=== PATIENT | male | born 1945 | race American Indian/Alaskan Native ===

== ENCOUNTER 2016-05-09 08:27 | Inpatient (IN) | payer MEDICARE ==
[2016-05-09] MEDS ORDERED: NACL 0.9% 500 ML 500 ML IV ONE (09:26)
[2016-05-09] MEDS ORDERED: APRESOLINE IV ONE ×2 (09:26→11:49)
--- NOTE | 2016-05-09 09:27 | Emergency Department Report ---
ED General Adult HPI - General Chief complaint: Dizziness Stated complaint: DIZZINESS/FATIGUE Time Seen by Provider: 05/09/16 09:17 Source: patient, RN notes reviewed Mode of arrival: Ambulatory Limitations: No Limitations - History of Present Illness Initial comments: This is a 72-year-old male. He is previously unknown to me. Supposed to be seeing Dr. Perez, but is not following up. Has a past medical history of hypertension. Has not taken medications in over 3 months. The patient presents to the ER with dizziness. He reports having a mild headache last night, and woke up this morning feeling "off." This sensation has since resolved. Headache is not sudden or thunderclap in nature. There is no syncope, or presyncope. He shouldn't does not feel off balance per se, but feels "off." Symptoms have been constant since this morning, they have no exacerbating or relieving factors. -: Gradual Location: head Radiation: non-radiation Quality: aching Consistency: constant Improves with: none Worsens with: none Associated Symptoms: denies other symptoms - Related Data Previous Rx's Medication Instructions Recorded Last Taken Type hydrALAZINE [Apresoline TAB] 25 mg PO Q8HR #90 tab 09/30/15 Unknown Rx Allergies Allergy/AdvReac Type Severity Reaction Status Date / Time No Known Allergies Allergy Unverified 05/09/16 08:33 ED Review of Systems ROS: Stated complaint: DIZZINESS/FATIGUE Other details as noted in HPI Constitutional: see HPI Eyes: as per HPI ENT: as per HPI Respiratory: no symptoms reported Cardiovascular: as per HPI Gastrointestinal: as per HPI Genitourinary: as per HPI Musculoskeletal: as per HPI Skin: as per HPI Neurological: headache, abnormal gait Psychiatric: as per HPI ED Past Medical Hx - Past Medical History Hx Hypertension: Yes - Surgical History Past Surgical History?: No - Social History Smoking Status: Current Every Day Smoker Substance Use Type: None - Medications Home Medications: Home Medications Medication Instructions Recorded Confirmed Last Taken Type hydrALAZINE [Apresoline TAB] 25 mg PO Q8HR #90 tab 09/30/15 05/09/16 Unknown Rx ED Physical Exam - General Limitations: No Limitations General appearance: alert, in no apparent distress - Head Head exam: Present: atraumatic, normocephalic - Eye Eye exam: Present: normal appearance, EOMI. Absent: nystagmus - ENT ENT exam: Present: normal exam, normal orophraynx, mucous membranes moist, normal external ear exam - Neck Neck exam: Present: normal inspection, full ROM. Absent: tenderness, meningismus - Respiratory Respiratory exam: Present: normal lung sounds bilaterally. Absent: respiratory distress, wheezes, rales, rhonchi, stridor, decreased breath sounds - Cardiovascular Cardiovascular Exam: Present: regular rate, normal rhythm, normal heart sounds. Absent: bradycardia, tachycardia, irregular rhythm, systolic murmur, diastolic murmur, rubs, gallop - GI/Abdominal GI/Abdominal exam: Present: soft, normal bowel sounds. Absent: distended, tenderness, guarding, rebound, rigid, pulsatile mass - Rectal Rectal exam: Present: deferred - Extremities Exam Extremities exam: Present: normal inspection, full ROM, normal capillary refill. Absent: tenderness, pedal edema, joint swelling, calf tenderness - Back Exam Back exam: Present: normal inspection, full ROM. Absent: tenderness, CVA tenderness (R), CVA tenderness (L), muscle spasm, paraspinal tenderness, vertebral tenderness - Neurological Exam Neurological exam: Present: alert, oriented X3, abnormal gait (negative Romberg examination. Patient unable to perform tandem gait. Normal [id number] gait) , other (Extraocular movements intact. Tongue midline. No facial droop. Facial sensation intact to light touch in the V1, V2, V3 distribution bilaterally. 5 and 5 strength in 4 extremities.. Sensation is intact to light touch in 4 extremities.). Absent: motor sensory deficit (normal [id number]. Normal finger to nose. Negative pronator drift.) - Psychiatric Psychiatric exam: Present: normal affect, normal mood - Skin Skin exam: Present: warm, dry, intact, normal color. Absent: rash ED Course Vital Signs 05/09/16 05/09/16 05/09/16 08:30 08:49 09:00 Temperature 97.8 F Pulse Rate 91 H 96 H Respiratory 19 22 34 H Rate Blood Pressure 224/134 200/125 Blood Pressure [Right] O2 Sat by Pulse 99 98 Oximetry 05/09/16 05/09/16 05/09/16 09:20 10:05 11:30 Temperature 98.0 F Pulse Rate 89 85 Respiratory 16 13 Rate Blood Pressure 196/116 Blood Pressure 198/129 [Right] O2 Sat by Pulse 96 Oximetry 05/09/16 05/09/16 05/09/16 12:00 12:01 13:00 Temperature 98.7 F 98.5 F Pulse Rate 94 H 85 92 H Respiratory 12 13 Rate Blood Pressure 198/129 Blood Pressure 186/107 157/105 [Right] O2 Sat by Pulse 95 100 Oximetry 05/09/16 14:00 Temperature 97.9 F Pulse Rate 90 Respiratory 12 Rate Blood Pressure Blood Pressure 158/99 [Right] O2 Sat by Pulse 100 Oximetry - Reevaluation(s) Reevaluation #1: 05/09/16 12:21 Differential diagnosis: Transient ischemic attack, subacute posterior circulation stroke, unsteady gait, hypertensive emergency/emergency Assessment and plan: 71-year-old male with markedly elevated blood pressure, and sensation of feeling "off." Patient has inability to walk tandem gait which he states is new. Otherwise, his neurologic examination is unremarkable. Woke up with symptoms, therefore, not a TPA candidate. Given that patient has had poorly controlled blood pressure 4 months, and may be experiencing a subacute stroke, we will allow for some permissive hypertension, and gradually lowered blood pressure. Aspirin is ordered, and case was discussed with the Hospital physician, Dr. Quintero, who graciously accepted the patient to his service. ED Medical Decision Making - Lab Data Result diagrams: 05/09/16 09:03 05/09/16 09:03 Vital Signs 05/09/16 05/09/16 05/09/16 08:30 08:49 09:00 Temperature 97.8 F Pulse Rate 91 H 96 H Respiratory 19 22 34 H Rate Blood Pressure 224/134 200/125 Blood Pressure [Right] O2 Sat by Pulse 99 98 Oximetry 05/09/16 05/09/16 05/09/16 09:20 10:05 11:30 Temperature 98.0 F Pulse Rate 89 85 Respiratory 16 13 Rate Blood Pressure 196/116 Blood Pressure 198/129 [Right] O2 Sat by Pulse 96 Oximetry 05/09/16 12:01 Temperature Pulse Rate 85 Respiratory Rate Blood Pressure 198/129 Blood Pressure [Right] O2 Sat by Pulse Oximetry Lab Results 05/09/16 05/09/16 05/09/16 Range/Units 09:03 09:03 09:03 WBC 8.5 (4.5-11.0) K/mm3 RBC 6.42 H (3.65-5.03) M/mm3 Hgb 13.4 (11.8-15.2) gm/dl Hct 41.6 (35.5-45.6) % MCV 65 L (84-94) fl MCH 21 L (28-32) pg MCHC 32 (32-34) % RDW 15.5 H (13.2-15.2) % Plt Count 152 (140-440) K/mm3 Lymph % (Auto) 42.2 H (13.4-35.0) % [place] % (Auto) 9.2 H (0.0-7.3) % Eos % (Auto) 2.1 (0.0-4.3) % Baso % (Auto) 0.8 (0.0-1.8) % Lymph # 3.6 (1.2-5.4) K/mm3 [place] # 0.8 (0.0-0.8) K/mm3 Eos # 0.2 (0.0-0.4) K/mm3 Baso # 0.1 (0.0-0.1) K/mm3 Seg Neutrophils % 45.7 (40.0-70.0) % Seg Neutrophils # 3.9 (1.8-7.7) K/mm3 Sodium 140 (137-145) mmol/L Potassium 4.2 (3.6-5.0) mmol/L Chloride 103.7 (98-107) mmol/L Carbon Dioxide 23 (22-30) mmol/L Anion Gap 18 mmol/L BUN 12 (9-20) mg/dL Creatinine 1.2 (0.8-1.5) mg/dL Estimated GFR > 60 ml/min BUN/Creatinine Ratio 10.00 % Glucose 98 (75-100) mg/dL Calcium 9.1 (8.4-10.2) mg/dL Total Creatine Kinase (55-170) units/L Troponin T < 0.010 (0.00-0.029) ng/mL Urine Color (Yellow) Urine Turbidity (Clear) Urine pH (5.0-7.0) Ur Specific [place] (1.003-1.030) Urine Protein (Negative) mg/dL Urine Glucose (UA) (Negative) mg/dL Urine Ketones (Negative) mg/dL Urine Blood (Negative) Urine Nitrite (Negative) Urine Bilirubin (Negative) Urine Urobilinogen (<2.0) mg/dL Ur Leukocyte Esterase (Negative) Urine WBC (Auto) (0.0-6.0) /HPF Urine RBC (Auto) (0.0-6.0) /HPF Urine Mucus /HPF 05/09/16 05/09/16 Range/Units 09:03 10:11 WBC (4.5-11.0) K/mm3 RBC (3.65-5.03) M/mm3 Hgb (11.8-15.2) gm/dl Hct (35.5-45.6) % MCV (84-94) fl MCH (28-32) pg MCHC (32-34) % RDW (13.2-15.2) % Plt Count (140-440) K/mm3 Lymph % (Auto) (13.4-35.0) % [place] % (Auto) (0.0-7.3) % Eos % (Auto) (0.0-4.3) % Baso % (Auto) (0.0-1.8) % Lymph # (1.2-5.4) K/mm3 [place] # (0.0-0.8) K/mm3 Eos # (0.0-0.4) K/mm3 Baso # (0.0-0.1) K/mm3 Seg Neutrophils % (40.0-70.0) % Seg Neutrophils # (1.8-7.7) K/mm3 Sodium (137-145) mmol/L Potassium (3.6-5.0) mmol/L Chloride (98-107) mmol/L Carbon Dioxide (22-30) mmol/L Anion Gap mmol/L BUN (9-20) mg/dL Creatinine (0.8-1.5) mg/dL Estimated GFR ml/min BUN/Creatinine Ratio % Glucose (75-100) mg/dL Calcium (8.4-10.2) mg/dL Total Creatine Kinase 136 (55-170) units/L Troponin T (0.00-0.029) ng/mL Urine Color Straw (Yellow) Urine Turbidity Clear (Clear) Urine pH 7.0 (5.0-7.0) Ur Specific [place] 1.010 (1.003-1.030) Urine Protein <15 mg/dl (Negative) mg/dL Urine Glucose (UA) Neg (Negative) mg/dL Urine Ketones Neg (Negative) mg/dL Urine Blood Neg (Negative) Urine Nitrite Neg (Negative) Urine Bilirubin Neg (Negative) Urine Urobilinogen < 2.0 (<2.0) mg/dL Ur Leukocyte Esterase Neg (Negative) Urine WBC (Auto) 1.0 (0.0-6.0) /HPF Urine RBC (Auto) 1.0 (0.0-6.0) /HPF Urine Mucus Few /HPF - EKG Data -: EKG Interpreted by Me EKG shows normal: sinus rhythm Rate: normal - EKG Data 05/09/16 12:22 normal sinus, 80 beats per minute, normal axis, QTC 452 ms, Q waves noted in the inferior leads, not morphologically consistent with STEMI, unchanged from prior EKG September 2015. - Radiology Data Radiology results: report reviewed, image reviewed X-ray the chest negative for acute findings. Noncontrast CAT scan of the brain negative for acute findings, chronic changes are noted. Critical care attestation.: If time is entered above; I have spent that time in minutes in the direct care of this critically ill patient, excluding procedure time. ED Disposition Clinical Impression: Hypertensive urgency, Unsteady gait Disposition: OP ADMITTED IP TO THIS HOSP Is pt being admited?: Yes Condition: Good
[2016-05-09 09:29] LABS: Basophils % (Auto) 0.8 % (0.0-1.8); Eosinophils % (Auto) 2.1 % (0.0-4.3); Hematocrit 41.6 % (35.5-45.6); Hemoglobin 13.4 gm/dl (11.8-15.2); Mean Corpuscular HGB Conc 32 % (32-34); Platelet Count 152 K/mm3 (140-440); Red Blood Count 6.42 M/mm3 (3.65-5.03); Red Cell Distribution Width 15.5 % (13.2-15.2); White Blood Count 8.5 K/mm3 (4.5-11.0)
[2016-05-09 09:31] LABS: Mean Corpuscular Hemoglobin 21 pg (28-32); Mean Corpuscular Volume 65 fl (84-94)
[2016-05-09 09:38] LABS: Anion Gap 18 mmol/L; Blood Urea Nitrogen 12 mg/dL (9-20); Calcium 9.1 mg/dL (8.4-10.2); Carbon Dioxide 23 mmol/L (22-30); Chloride 103.7 mmol/L (98-107); Glucose 98 mg/dL (75-100); Potassium 4.2 mmol/L (3.6-5.0); Sodium 140 mmol/L (137-145)
--- NOTE | 2016-05-09 09:45 | XRay Report ---
ROUTINE CHEST, TWO VIEWS: HISTORY: Hypertension. The trachea, heart, mediastinal contour, lung hassan and bony thorax are unremarkable. The aorta is ectatic but well-defined. Low suspicion for dissection. IMPRESSION: No acute cardiopulmonary process.
--- NOTE | 2016-05-09 10:12 | Cat Scan Report ---
CT HEAD WITHOUT CONTRAST: HISTORY: Dizziness, hypertension. No comparison. Mild nonspecific chronic white matter changes are identified. A chronic cortical infarct measuring 2-3 cm is noted in the right posterior watershed region. There is no evidence for hemorrhage, mass or large area of acute ischemia. Ventricular size is within normal limits. The posterior fossa and contents are unremarkable. The left frontal sinus is opacified. The remaining visualized sinuses and mastoid air cells are well-aerated. IMPRESSION: Nonspecific chronic white matter changes. 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 Left frontal sinus disease, likely chronic.
--- NOTE | 2016-05-09 10:18 | Admit Criteria Form ---
Admission Criteria Documentation: HYPERTENSION Clinical Indications for Admission to Inpatient Care ( Place "X" for any and all applicable criteria): Admission is indicated for ANY ONE of the following(1)(2)(3)(4): [ ]I. Hypertensive emergency, with evidence of acute and progressing target organ disease as indicated by ANY ONE of the following: [ ]a) Hypertensive encephalopathy (eg, confusion, altered mental status) [ ]b) Cerebral infarction [ ]c) Intracranial hemorrhage [ ]d) Myocardial ischemia or infarction [ ]e) Pulmonary edema [ ]f) Aortic dissection [ ]g) Seizure [ ]h) Acute renal insufficiency [ ]i) Papilledema [ ]j) Microangiopathic hemolytic anemia [ ]II. Adrenergic crisis (eg, severe hypertension due to pheochromocytoma crisis, cocaine or amphetamine intoxication, or clonidine withdrawal) [X]III. Severe hypertension (SBP greater than 180 mmHg or DBP greater than 110 mmHg or greater than the 95th percentile for age, gender, and height in pediatric patients) that cannot be controlled (eg, to SBP less than 160 mmHg and DBP less than 100 mmHg in adults) by treatment with oral medication in emergency department or observation care Extended stay beyond goal length of stay may be needed for(11)(12)(13): [ ]a) Persistent hypertensive encephalopathy [ ]b) Continuation of pulmonary edema [ ]c) Recurring or persistent severe hypertension [ ]d) Target organ damage (eg, angina, stroke, aortic dissection) [ ]e) Associated renal insufficiency The original [employer] content created by [employer] has been revised. The portions of the content which have been revised are identified through the use of italic text or in bold, and [employer] has neither reviewed nor approved the modified material. All other unmodified content is copyright [employer]. Please see references footnoted in the original [employer] edition 2016 Admission Criteria Met: Yes
[2016-05-09 10:48] LABS: Bilirubin,Urine NEG (Negative); Blood,Urine NEG (Negative); Ketones,Urine NEG (Negative); Leukocyte Esterase,Urine NEG (Negative); Mucus,Urine FEW /HPF; Nitrite,Urine NEG (Negative); Protein,Urine <15 mg/dL mg/dL (Negative); Urobilinogen,Urine < 2.0 mg/dL (<2.0)
[2016-05-09] MEDS ORDERED: BABY ASPIRIN PO ONE (12:23)
--- NOTE | 2016-05-09 12:42 | History and Physical Report ---
History of Present Illness Chief complaint: My head hurts, and I just dont feel right History of present illness: 71 YO Male with HTN, Metabolic Syndrome, Medication Noncompliance, Nicotine Dependence presents to ED for evaluation. Pt states that he reports having a generalized headache that began 24 hours ago, and has worsened over the past 6 hours. Pt also states that he awoke this morning feeling "off." This sensation has since resolved. Pt denies fever, Chills, CP, Palpitations, NVD, Syncope, Vertigo, BRBPR, Prolonged travel/immobility. -: Gradual Location: head Radiation: non-radiation Quality: aching Consistency: constant Improves with: none Worsens with: none Associated Symptoms: denies other symptoms - Related Data Previous Rx's Medication Instructions Recorded Last Taken Type hydrALAZINE [Apresoline TAB] 25 mg PO Q8HR #90 tab 09/30/15 Unknown Rx Allergies Allergy/AdvReac Type Severity Reaction Status Date / Time No Known Allergies Allergy Unverified 05/09/16 08:33 ED Review of Systems ROS: Stated complaint: DIZZINESS/FATIGUE Other details as noted in HPI ED Past Medical Hx - Past Medical History Hx Hypertension: Yes - Surgical History Past Surgical History?: No - Social History Smoking Status: Current Every Day Smoker Substance Use Type: None - Medications Past History Past Medical History: hypertension Past Surgical History: No surgical history, Other (reviewed) Social history: single, smoking. denies: alcohol abuse, prescription drug abuse Family history: hypertension Medications and Allergies Allergies Allergy/AdvReac Type Severity Reaction Status Date / Time No Known Allergies Allergy Unverified 05/09/16 08:33 Home Medications Medication Instructions Recorded Confirmed Last Taken Type hydrALAZINE [Apresoline TAB] 25 mg PO Q8HR #90 tab 09/30/15 05/09/16 Unknown Rx Review of Systems All systems: negative Neurological: headaches, confusion Exam - Constitutional Vitals: Temp Pulse Resp BP Pulse Ox 98.0 F 85 13 198/129 96 05/09/16 11:30 05/09/16 12:01 05/09/16 11:30 05/09/16 12:01 05/09/16 11:30 General appearance: Present: mild distress - EENT Eyes: Present: PERRL ENT: hearing intact, clear oral mucosa - Neck Neck: Present: supple, normal ROM - Respiratory Respiratory effort: normal Respiratory: bilateral: CTA - Cardiovascular Heart Sounds: Present: S1 & S2. Absent: rub, click - Extremities Extremities: pulses symmetrical, No edema Peripheral Pulses: within normal limits - Abdominal General gastrointestinal: Present: soft, non-tender, non-distended, normal bowel sounds Male genitourinary: Present: normal - Integumentary Integumentary: Present: clear, warm, dry - Musculoskeletal Musculoskeletal: gait normal, strength equal bilaterally - Psychiatric Psychiatric: appropriate mood/affect, intact judgment & insight - Neurologic Neurologic: CNII-XII intact, moves all extremities Results - Labs CBC & Chem 7: 05/09/16 09:03 05/09/16 09:03 Labs: Abnormal lab results 05/09/16 Range/Units 09:03 RBC 6.42 H (3.65-5.03) M/mm3 MCV 65 L (84-94) fl MCH 21 L (28-32) pg RDW 15.5 H (13.2-15.2) % Lymph % (Auto) 42.2 H (13.4-35.0) % [place] % (Auto) 9.2 H (0.0-7.3) % Assessment and Plan - Patient Problems (1) Hypertensive urgency, malignant Current Visit: Yes Status: Acute Plan to address problem: Monitor BP q shift, supportive care, (2) Hypertensive encephalopathy syndrome Current Visit: Yes Status: Acute Plan to address problem: monitor bp q shift, supportive care, (3) Debility Current Visit: Yes Status: Acute Plan to address problem: bad alarm, fall precautions (4) Metabolic syndrome Current Visit: Yes Status: Acute Plan to address problem: lipid panel, supportive care, Pt counseled (5) DVT prophylaxis Current Visit: Yes Status: Acute
[2016-05-09] MEDS ORDERED: MILK OF MAGNESIA PO PRN (13:25)
[2016-05-09] MEDS ORDERED: TYLENOL PO PRN (13:25)
[2016-05-09] MEDS ORDERED: DULCOLAX PR PRN (13:25)
[2016-05-09] MEDS ORDERED: ZOFRAN IV PRN (13:25)
[2016-05-09] MEDS ORDERED: SODIUM CHLORIDE FLUSH SYRINGE 10 ML IV PRN (13:33)
[2016-05-09 14:15] LABS: Creatine Kinase 127 units/L (55-170); Creatine Kinase MB 1.6 ng/mL (0.0-4.0)
[2016-05-09] MEDS: APRESOLINE PO SCH ×2 (14:45→22:26)
[2016-05-09 15:48] LABS: Creatine Kinase MB 1.9 ng/mL (0.0-4.0)
[2016-05-09 15:53] LABS: Creatine Kinase 135 units/L (55-170)
[2016-05-09] MEDS: NORVASC PO SCH (17:05)
[2016-05-09 21:21] LABS: Creatine Kinase MB 2.8 ng/mL (0.0-4.0)
[2016-05-09 21:22] LABS: Creatine Kinase 213 units/L (55-170)
[2016-05-10] MEDS: APRESOLINE PO SCH ×3 (05:34→22:03)
[2016-05-10] MEDS: NORVASC PO SCH ×2 (10:39→15:09)
[2016-05-10] MEDS ORDERED: NORMODYNE IV PRN (13:50)
[2016-05-10] MEDS ORDERED: APRESOLINE IV PRN (13:50)
[2016-05-10] MEDS ORDERED: ZOFRAN IV PRN (13:50)
[2016-05-10] MEDS ORDERED: NORVASC PO SCH (13:53)
--- NOTE | 2016-05-10 13:58 | Progress Note ---
Assessment and Plan Assessment and plan: Accelerated hypertension: Increase Norvasc, add beta betsy Tobacco dependancy: counseling to quit History Interval history: Patient seen and examined. Follow up on elevated blood pressure which is still uncontrolled. Overnight uneventful. No cp, sob, n/v or severe headaches. Imaging, old records, testing, labs, nursing notes reviewed. Plan discussed with patient. Hospitalist Physical - Physical exam Narrative exam: GEN: WDWN, NAD, AWAKE, ALERT, ORIENTATED CVS: RRR, NORMAL S1S2 LUNGS/CHEST: CTA B, NORMAL CHEST EXPANSION B, GOOD AIR ENTRY B ABD: SOFT NTND, GBS, NO REBOUND OR GUARDING EXT/SKIN: NO SIGNIFICANT EDEMA OR RASH MSK: FROM X 4 EXTREMITIES NEURO: CN 2-12 GROSSLY INTACT, NO new FOCAL DEFICITS PSY: CALM - Constitutional Vitals: Temp Pulse Resp BP Pulse Ox 99.7 F H 111 H 20 180/122 20 L 05/10/16 09:35 05/10/16 10:39 05/10/16 06:00 05/10/16 10:39 05/10/16 09:35 Results - Labs CBC & Chem 7: 05/09/16 09:03 05/09/16 09:03 Labs: Laboratory Last Values WBC 8.5 K/mm3 (4.5-11.0) 05/09/16 09:03 RBC 6.42 M/mm3 (3.65-5.03) H 05/09/16 09:03 Hgb 13.4 gm/dl (11.8-15.2) 05/09/16 09:03 Hct 41.6 % (35.5-45.6) 05/09/16 09:03 MCV 65 fl (84-94) L 05/09/16 09:03 MCH 21 pg (28-32) L 05/09/16 09:03 MCHC 32 % (32-34) 05/09/16 09:03 RDW 15.5 % (13.2-15.2) H 05/09/16 09:03 Plt Count 152 K/mm3 (140-440) 05/09/16 09:03 Lymph % (Auto) 42.2 % (13.4-35.0) H 05/09/16 09:03 [place] % (Auto) 9.2 % (0.0-7.3) H 05/09/16 09:03 Eos % (Auto) 2.1 % (0.0-4.3) 05/09/16 09:03 Baso % (Auto) 0.8 % (0.0-1.8) 05/09/16 09:03 Lymph # 3.6 K/mm3 (1.2-5.4) 05/09/16 09:03 [place] # 0.8 K/mm3 (0.0-0.8) 05/09/16 09:03 Eos # 0.2 K/mm3 (0.0-0.4) 05/09/16 09:03 Baso # 0.1 K/mm3 (0.0-0.1) 05/09/16 09:03 Seg Neutrophils % 45.7 % (40.0-70.0) 05/09/16 09:03 Seg Neutrophils # 3.9 K/mm3 (1.8-7.7) 05/09/16 09:03 Sodium 140 mmol/L (137-145) 05/09/16 09:03 Potassium 4.2 mmol/L (3.6-5.0) 05/09/16 09:03 Chloride 103.7 mmol/L (98-107) 05/09/16 09:03 Carbon Dioxide 23 mmol/L (22-30) 05/09/16 09:03 Anion Gap 18 mmol/L 05/09/16 09:03 BUN 12 mg/dL (9-20) 05/09/16 09:03 Creatinine 1.2 mg/dL (0.8-1.5) 05/09/16 09:03 Estimated GFR > 60 ml/min 05/09/16 09:03 BUN/Creatinine Ratio 10.00 % 05/09/16 09:03 Glucose 98 mg/dL (75-100) 05/09/16 09:03 Calcium 9.1 mg/dL (8.4-10.2) 05/09/16 09:03 Total Creatine Kinase 213 units/L (55-170) H 05/09/16 20:33 CK-MB (CK-2) 2.8 ng/mL (0.0-4.0) 05/09/16 20:33 CK-MB (CK-2) Rel Index 1.3 (0-4) 05/09/16 20:33 Troponin T < 0.010 ng/mL (0.00-0.029) 05/09/16 20:33 NT-Pro-B Natriuret Pep 782.7 pg/mL (0-900) 05/09/16 13:37 Urine Color Straw (Yellow) 05/09/16 10:11 Urine Turbidity Clear (Clear) 05/09/16 10:11 Urine pH 7.0 (5.0-7.0) 05/09/16 10:11 Ur Specific [place] 1.010 (1.003-1.030) 05/09/16 10:11 Urine Protein <15 mg/dl mg/dL (Negative) 05/09/16 10:11 Urine Glucose (UA) Neg mg/dL (Negative) 05/09/16 10:11 Urine Ketones Neg mg/dL (Negative) 05/09/16 10:11 Urine Blood Neg (Negative) 05/09/16 10:11 Urine Nitrite Neg (Negative) 05/09/16 10:11 Urine Bilirubin Neg (Negative) 05/09/16 10:11 Urine Urobilinogen < 2.0 mg/dL (<2.0) 05/09/16 10:11 Ur Leukocyte Esterase Neg (Negative) 05/09/16 10:11 Urine WBC (Auto) 1.0 /HPF (0.0-6.0) 05/09/16 10:11 Urine RBC (Auto) 1.0 /HPF (0.0-6.0) 05/09/16 10:11 Urine Mucus Few /HPF 05/09/16 10:11
[2016-05-10] MEDS: LOPRESSOR PO SCH ×2 (15:12→22:02)
[2016-05-11] MEDS: APRESOLINE PO SCH (05:18)
[2016-05-11] MEDS: LOPRESSOR PO SCH (10:17)
[2016-05-11] MEDS: NORVASC PO SCH (10:18)
[2016-05-11 10:19] VITALS: BP 138/103
--- NOTE | 2016-05-11 11:11 | Discharge Summary ---
Providers - Providers Date of Admission: 05/09/16 13:25 Date of discharge: 05/11/16 Attending physician: MAAME VINSON Primary care physician: ABEL DUNN Hospitalization Condition: Stable Hospital course: Patient is 71-year-old man history of hypertension and tobacco dependency who admits to not taking his medication presents with headache. CT of the head showed chronic white matter changes and chronic cortical infarct right parietal temporal lobe and left frontal chronic sinus Disease. Chest x-ray was no active issue. He was admitted to the hospital because blood pressure 198/129 heart rate 85.his blood pressure was adjusted. He denies any symptoms no neurological symptoms and his headache has resolved with improvement of blood pressure. Accelerated hypertension: Increase Norvasc, added beta betsy, cr 1.2, ~gfr 60 so no acei/arb at this time. Tobacco dependancy: counseling to quit Disposition: DISCHARGED TO HOME OR SELFCARE Time spent for discharge: 34 minutes. Core Measure Documentation - Palliative Care Palliative Care/ Comfort Measures: Not Applicable - Core Measures Any of the following diagnoses?: none - VTE Discharge Requirements Deep Vein Thrombosis/Pulmonary Embolism Present on Admission: No Has pt received <5 days of overlap therapy or INR<2.0: No Anticoagulant overlap therapy prescribed at discharge: No Contraindication No Overlap Therapy order at DC: Not Indicated Exam - Physical Exam Narrative exam: GEN: WDWN, NAD, AWAKE, ALERT, ORIENTATED CVS: RRR, NORMAL S1S2 LUNGS/CHEST: CTA B, NORMAL CHEST EXPANSION B, GOOD AIR ENTRY B ABD: SOFT NTND, GBS, NO REBOUND OR GUARDING EXT/SKIN: NO SIGNIFICANT EDEMA OR RASH MSK: FROM X 4 EXTREMITIES NEURO: CN 2-12 GROSSLY INTACT, NO new FOCAL DEFICITS PSY: CALM - Constitutional Vitals: Temp Pulse Resp BP Pulse Ox 98.7 F 85 18 138/103 100 05/11/16 04:00 05/11/16 10:18 05/11/16 04:00 05/11/16 10:18 05/10/16 22:00 Plan Activity: advance as tolerated (no strenous activites until cleared by PCP. ) Diet: low salt Special Instructions: record daily BP diary Follow up with: ABEL DUNN MD [Primary Care Provider] - 3-5 Days Prescriptions: hydrALAZINE [Apresoline TAB] 25 mg PO Q8HR #90 tablet Metoprolol [Lopressor TAB] 50 mg PO BID #60 tablet
[2016-05-11] MEDS ORDERED: PNEUMOVAX 23 IM ONE (12:00)
[2016-05-11] MEDS ORDERED: FLUARIX QUAD 2016-2017(36 MOS+) IM ONE (12:00)
== END 2016-05-11 13:30 | disposition home or self-care (01) | DRG 305 ==
LOC: ED 08:27 → CC2 13:25
PROVIDERS: ADMIT Internal Medicine; ATTEND Internal Medicine
DX: I16.0 Hypertensive urgency (principal); I67.4 Hypertensive encephalopathy; R53.81 Other malaise; E88.81 Metabolic syndrome and other insulin resistance; F17.200 Nicotine dependence, unspecified, uncomplicated; Z91.14 Patient's other noncompliance with medication regimen; Z82.49 Family history of ischemic heart disease and other diseases of the circulatory system; Z71.6 Tobacco abuse counseling
CPT/HCPCS: 36415; 70450; 71020; 80048; 81001; 82550; 82553; 83880; 84484; 85025; 90686; 90732; 93005; 93010; 93306; 96361; 96374; 96376; 99406; J0360; J7040